=== PATIENT | male | born 1970 | race African-American/Black ===

== ENCOUNTER 2023-10-02 11:16 | Emergency (ER) | payer OTHER ==
[2023-10-02 11:23] VITALS: BP 157/77; PULSE 95; RESP 18; TEMP 98.8; BMI 30.1
[2023-10-02] MEDS ORDERED: IBUPROFEN 400 MG TABLET (FP) PO PRN (12:22)
[2023-10-02] MEDS ORDERED: CYCLOBENZAPRINE HCL 10 MG TABLET (FP) ONE (12:43)
[2023-10-02] MEDS: CYCLOBENZAPRINE HCL 10 MG TABLET (FP) PO ONE (12:58)
== END 2023-10-02 15:07 | disposition home or self-care (01) ==
LOC: JERFT 11:16
DX: S39.012A Strain of muscle, fascia and tendon of lower back, initial encounter (principal); S13.4XXA Sprain of ligaments of cervical spine, initial encounter; M25.561 Pain in right knee; V43.52XA Car driver injured in collision with other type car in traffic accident, initial encounter; Y92.410 Unspecified street and highway as the place of occurrence of the external cause
CPT/HCPCS: 72040-TC; 72100-TC-FY; 73030-TC-LT-FY; 73562-TC-RT-FY; 99284-25